=== PATIENT | female | born 1955 | race Caucasian/White ===

== ENCOUNTER → 2016-10-16 | Outpatient (REF) | payer OTHER ==
[2016-10-16 16:22] LABS: MEAN CORPUSCULAR HEMOGLOBIN 30.8 pg (27.0-33.0); MEAN CORPUSCULAR HGB CONC 32.6 g/dl (32.0-36.5); MEAN CORPUSCULAR VOLUME 94.6 fl (80.0-96.0); RED CELL DISTRIBUTION WIDTH 12.4 % (11.5-14.5); WHITE BLOOD COUNT 8.2 K/mm3 (4.0-10.0)
[2016-10-16 16:31] LABS: ALBUMIN 3.5 GM/DL (3.2-5.2); ALBUMIN/GLOBULIN RATIO 1.13 (1.00-1.93); ALKALINE PHOSPHATASE 71 U/L (45-117); ALT/SGPT 22 U/L (12-78); ANION GAP 8 MEQ/L (8-16); AST/SGOT 21 U/L (15-37); BILIRUBIN,TOTAL 0.3 MG/DL (0.2-1.0); BLOOD UREA NITROGEN 15 MG/DL (7-18); CALCIUM LEVEL 8.5 MG/DL (8.5-10.1); CARBON DIOXIDE LEVEL 26 MEQ/L (21-32); CHLORIDE LEVEL 105 MEQ/L (98-107); CREATININE FOR GFR 0.85 MG/DL (0.55-1.02); GLOMERULAR FILTRATION RATE > 60.0 (>51); GLUCOSE, FASTING 82 MG/DL (70-105); POTASSIUM SERUM 3.9 MEQ/L (3.5-5.1); SODIUM LEVEL 139 MEQ/L (136-145); TOTAL PROTEIN 6.6 GM/DL (6.4-8.2)
== END ==
LOC: M SFHCPLAZ 13:18
PROVIDERS: ATTEND Dermatology
DX: Z51.81 Encounter for therapeutic drug level monitoring (principal); Z79.899 Other long term (current) drug therapy

== ENCOUNTER → 2017-02-26 | Outpatient (CLI) | payer OTHER ==
[~2017-02-26] MED LIST: ISOVUE-370 76% 100ML VIAL (Q9967) As Ordered ONE
--- NOTE | 2017-02-26 18:05 | REP ---
CT ANGIOGRAM CHEST: 02/26/2017. Clinical history: Sudden onset dyspnea. Left-sided chest wall pain. No prior pertinent study. Technique: The patient received 75 mL of Isovue 370, scanning through the chest with our pulmonary embolism protocol. Coronal and sagittal thick slab MIP reformats were performed. Findings: The lungs are well inflated. Some dependent atelectatic changes mid and lower lung zones bilaterally. More focal atelectatic changes deep sulcus left lower lobe medial and lateral basal segments. I do not see pleural effusion, pleural plaques without or with calcification, parenchymal lung mass nor any definite acute infiltrate. No definite nodule. Some minor apical pleuroparenchymal scarring. Heart is not enlarged. There is no pericardial thickening or effusion. The aorta is without aneurysm or dissection. No pathologic sized mediastinal or hilar adenopathy. The main, right and left pulmonary arteries are without filling defects in the mediastinum. The lobar, segmental and visible subsegmental arteries are without filling defect or vessel cutoff. I see no pneumothorax or pneumomediastinum. No hilar adenopathy, axillary or supraclavicular mass. Bone windows show dextroconvex scoliosis with some degenerative changes throughout the mid thoracic spine without compression deformity or destructive lesion. Sternum and manubrium grossly intact. The medial clavicles are unremarkable. Visualized ribs are intact without fracture or focal lesion. In the upper abdomen, no focal lesion of liver or spleen. The left lobe is elongated and extends across the entire upper abdomen cradling the upper pole of the spleen as anatomic variation. Neither organ is seen in their entirety. Adrenal glands grossly intact. No hiatal hernia. Impression: 1. There is no CT evidence of pulmonary thromboembolism. No pneumothorax or pneumomediastinum. 2. Dependent atelectatic changes in the lower chest posteriorly. 3. No infiltrate, bronchiectasis, lung mass or nodule. 4. No aortic aneurysm or dissection, mediastinal or hilar adenopathy nor supraclavicular mass. 5. Dextrorotatory scoliosis without compression deformity, rib lesion or fracture, pneumothorax or pneumomediastinum. Signed by Franklin Ernst MD 02/27/2017 04:46 P
== END ==
LOC: M RAD 17:02
PROVIDERS: ATTEND Nurse Practitioner Adult Health
DX: R07.89 Other chest pain (principal)

== ENCOUNTER → 2017-09-05 | Outpatient (REF) | payer OTHER, BC ==
[2017-09-05 12:49] LABS: BASO % 0.5 % (0.0-1.0); EOS # 0.2 10^3/uL (0.0-0.50); EOS % 2.6 % (0.0-3.0); HEMATOCRIT 45.7 % (36.0-47.0); HEMOGLOBIN 14.8 g/dl (12.0-16.0); IMMATURE GRANULOCYTE % 0.2 % (0-3.0); LYMPH # 2.5 10^3/uL (1.5-4.5); LYMPH % 29.8 % (24.0-44.0); MEAN CORPUSCULAR HEMOGLOBIN 30.2 pg (27.0-33.0); MEAN CORPUSCULAR HGB CONC 32.4 g/dl (32.0-36.5); MEAN CORPUSCULAR VOLUME 93.3 fl (80.0-96.0); MONO # 0.7 10^3/uL (0.0-0.8); MONO % 7.9 % (0.0-5.0); NEUTROPHILS # 4.9 10^3/uL (1.8-7.7); PLATELET COUNT, AUTOMATED 264 10^3/uL (150-450); RED CELL DISTRIBUTION WIDTH 12.9 % (11.5-14.5); WHITE BLOOD COUNT 8.2 10^3/uL (4.0-10.0)
[2017-09-05 13:37] LABS: ALBUMIN 3.8 GM/DL (3.2-5.2); ALBUMIN/GLOBULIN RATIO 1.15 (1.00-1.93); ALKALINE PHOSPHATASE 82 U/L (45-117); ALT/SGPT 25 U/L (12-78); ANION GAP 7 MEQ/L (8-16); AST/SGOT 20 U/L (7-37); BILIRUBIN,TOTAL 0.4 MG/DL (0.2-1.0); BLOOD UREA NITROGEN 15 MG/DL (7-18); CALCIUM LEVEL 9.2 MG/DL (8.8-10.2); CARBON DIOXIDE LEVEL 30 MEQ/L (21-32); CHLORIDE LEVEL 104 MEQ/L (98-107); CHOLESTEROL LEVEL 184 MG/DL (<200); CHOLESTEROL RISK RATIO 2.453 (<5); CREATININE FOR GFR 0.93 MG/DL (0.55-1.30); GLOMERULAR FILTRATION RATE > 60.0 (>45); GLUCOSE, FASTING 84 MG/DL (70-100); HDL CHOLESTEROL 75 MG/DL (>40); LDL CHOLESTEROL 93.4 MG/DL (<100); NON-HDL-C 109 MG/DL; POTASSIUM SERUM 4.4 MEQ/L (3.5-5.1); SODIUM LEVEL 141 MEQ/L (136-145); TOTAL PROTEIN 7.1 GM/DL (6.4-8.2); TRIGLYCERIDES LEVEL 78 MG/DL (<150)
== END ==
LOC: M SFHCPLAZ 12:00
DX: Z51.81 Encounter for therapeutic drug level monitoring (principal); Z79.899 Other long term (current) drug therapy
CPT/HCPCS: 80053

== ENCOUNTER → 2018-05-19 | Outpatient (CLI) | payer BC | LOC: M WHC 11:28 | DX: Z12.31 Encounter for screening mammogram for malignant neoplasm of breast (principal); Z78.0 Asymptomatic menopausal state; Z92.23 Personal history of estrogen therapy; Z80.3 Family history of malignant neoplasm of breast; Z80.49 Family history of malignant neoplasm of other genital organs | CPT/HCPCS: 77067 ==

== ENCOUNTER → 2018-08-14 | Outpatient (CLI) | payer BC ==
--- NOTE | 2018-08-14 16:04 | REP ---
LUMBAR SPINE, SEVEN VIEWS: HISTORY: Back pain. There is no acute fracture or subluxation. The L3-4 through L5-S1 intervertebral discs are decreased in height consistent with disc degeneration. Osteophytes are present on L3 through 5. There is narrowing of the L3-4 through L5-S1 facet joints. There is scoliosis convex to the left. IMPRESSION: Degenerative change as described above. Electronically Signed by Carlos De León MD 08/14/2018 04:07 P
== END ==
LOC: M SMT 15:10
PROVIDERS: ATTEND Family Medicine
DX: M25.78 Osteophyte, vertebrae (principal); M51.36 Other intervertebral disc degeneration, lumbar region

== ENCOUNTER → 2018-08-15 | Outpatient (REF) | payer BC ==
[2018-08-15 13:46] LABS: BASO % 0.4 % (0.0-1.0); EOS # 0.2 10^3/uL (0.0-0.50); EOS % 2.4 % (0.0-3.0); HEMOGLOBIN 13.9 g/dl (12.0-15.5); LYMPH # 2.8 10^3/uL (1.5-4.5); LYMPH % 37.2 % (24.0-44.0); MEAN CORPUSCULAR HGB CONC 33.1 g/dl (32.0-36.5); MEAN CORPUSCULAR VOLUME 90.7 fl (80.0-96.0); MONO # 0.5 10^3/uL (0.0-0.8); MONO % 6.4 % (0.0-5.0); NEUTROPHILS % 53.3 % (36.0-66.0); PLATELET COUNT, AUTOMATED 197 10^3/uL (150-450); RED BLOOD COUNT 4.63 10^6/uL (4.00-5.40); WHITE BLOOD COUNT 7.5 10^3/uL (4.0-10.0)
[2018-08-15 15:02] LABS: IMMUNOGLOBULIN E 5.2 IU/ML (<100); IMMUNOGLOBULIN G 1090 MG/DL (681-1648); RUBELLA IgG QUALITATIVE IMMUNE (IMMUNE)
== END ==
LOC: M LABDRAWP 12:06
PROVIDERS: ATTEND Allergy & Immunology Allergy
DX: K21.9 Gastro-esophageal reflux disease without esophagitis (principal); D84.9 Immunodeficiency, unspecified; J30.1 Allergic rhinitis due to pollen; J30.81 Allergic rhinitis due to animal (cat) (dog) hair and dander

== ENCOUNTER → 2018-08-15 | Outpatient (REF) | payer BC ==
[2018-08-15 14:02] LABS: MAGNESIUM LEVEL 2.1 MG/DL (1.8-2.4)
[2018-08-20 00:07] LABS: HOMOCYST(E)INE SERUM 7.2 umol/L (0.0-15.0)
== END ==
LOC: M LABDRAWP 12:10
PROVIDERS: ATTEND Family Medicine
DX: K21.9 Gastro-esophageal reflux disease without esophagitis (principal); Z11.59 Encounter for screening for other viral diseases

== ENCOUNTER → 2018-11-12 | Outpatient (REF) | payer BC ==
[2018-11-18 08:06] LABS: STREP PNEUMO TYPE 1 >22.7 ug/mL (>1.3); STREP PNEUMO TYPE 12F 1.9 ug/mL (>1.3); STREP PNEUMO TYPE 14 0.8 ug/mL (>1.3); STREP PNEUMO TYPE 18C 7.2 ug/mL (>1.3); STREP PNEUMO TYPE 19A >11.6 ug/mL (>1.3); STREP PNEUMO TYPE 19F 1.3 ug/mL (>1.3); STREP PNEUMO TYPE 23F 0.2 ug/mL (>1.3); STREP PNEUMO TYPE 3 >9.6 ug/mL (>1.3); STREP PNEUMO TYPE 4 0.3 ug/mL (>1.3); STREP PNEUMO TYPE 6B 28.1 ug/mL (>1.3); STREP PNEUMO TYPE 7F >16.9 ug/mL (>1.3); STREP PNEUMO TYPE 8 20.1 ug/mL (>1.3); STREP PNEUMO TYPE 9N 1.8 ug/mL (>1.3); STREP PNEUMO TYPE 9V 2.2 ug/mL (>1.3)
== END ==
LOC: M LABDRAWP 15:38
PROVIDERS: ATTEND Allergy & Immunology Allergy
DX: D84.9 Immunodeficiency, unspecified (principal)

== ENCOUNTER → 2019-05-20 | Outpatient (REF) | payer BC ==
[2019-05-22 14:12] LABS: HPV HYBRID CAPTURE II Negative (Negative)
== END ==
LOC: M SFHCWAGY 12:40
PROVIDERS: ATTEND Nurse Practitioner Women's Health
DX: Z12.4 Encounter for screening for malignant neoplasm of cervix (principal)
CPT/HCPCS: 87624; G0123

== ENCOUNTER → 2019-05-20 | Outpatient (CLI) | payer BC ==
--- NOTE | 2019-05-20 13:08 | REPMRS ---
Patient History The patient states she had a clinical breast exam in 05/2019. Patient is postmenopausal. Family history of premenopausal breast cancer at age 50 or over in paternal grandmother, ovarian cancer at age 50 or over in maternal cousin, endometrial cancer at age 50 or over in maternal cousin, endometrial cancer at age 59 in sister. Took estrogen for 1 year 1 month. Took progesterone for 9 months. 3D TOMOSYNTHESIS WAS PERFORMED. The [facility] lifetime risk for breast cancer is 10.3%. Digital Woman Screen Mammo: May 20, 2019 - Exam #: [id number] Bilateral CC and MLO view(s) were taken. Technologist: Yuliana Santizo, Technologist Prior study comparison: May 19, 2018, bilateral digital woman screen mammo performed at [facility]. May 08, 2017, digital woman screen mammo performed at [facility]. FINDINGS: There are scattered fibroglandular densities. There has been no change in the appearance of the mammogram from the prior studies. There is a mild amount of residual fibroglandular tissue which is fairly symmetric. There is no interval development of dominant mass, architectural distortion, or clustered microcalcification suggestive of malignancy. Assessment: BI-RADS/ACR category 1 mammogram. Negative Mammogram. Recommendation Routine screening mammogram in 1 year (for women over age 40). This mammogram was interpreted with the aid of an FDA-approved computer-aided dectection system. Electronically Signed By: Catrachito David MD 05/20/19 [id number]
== END ==
LOC: M WHC 11:11
PROVIDERS: ATTEND Nurse Practitioner Women's Health
DX: Z12.31 Encounter for screening mammogram for malignant neoplasm of breast (principal); Z78.0 Asymptomatic menopausal state

== ENCOUNTER → 2019-08-11 | Outpatient (REF) | payer BC ==
[2019-08-11 10:00] LABS: BASO % 0.6 % (0.0-1.0); EOS # 0.1 10^3/uL (0.0-0.5); EOS % 1.7 % (0.0-3.0); HEMATOCRIT 47.2 % (36.0-47.0); HEMOGLOBIN 15.2 g/dl (12.0-15.5); LYMPH # 1.9 10^3/uL (1.5-5.0); LYMPH % 34.9 % (24.0-44.0); MEAN CORPUSCULAR HEMOGLOBIN 29.9 pg (27.0-33.0); MEAN CORPUSCULAR HGB CONC 32.2 g/dl (32.0-36.5); MEAN CORPUSCULAR VOLUME 92.7 fl (80.0-96.0); MONO # 0.6 10^3/uL (0.0-0.8); MONO % 10.9 % (0.0-5.0); NEUTROPHILS # 2.7 10^3/uL (1.5-8.5); NEUTROPHILS % 51.5 % (36.0-66.0); PLATELET COUNT, AUTOMATED 221 10^3/uL (150-450); RED BLOOD COUNT 5.09 10^6/uL (4.00-5.40); WHITE BLOOD COUNT 5.3 10^3/uL (4.0-10.0)
[2019-08-11 10:24] LABS: ALBUMIN 3.9 GM/DL (3.2-5.2); ALT/SGPT 25 U/L (12-78); BILIRUBIN,TOTAL 0.4 MG/DL (0.2-1.0); BLOOD UREA NITROGEN 14 MG/DL (7-18); C REACTIVE PROTEIN QUANTITATIV < 0.30 MG/DL (0.00-0.30); CALCIUM LEVEL 9.2 MG/DL (8.8-10.2); CARBON DIOXIDE LEVEL 31 MEQ/L (21-32); CHLORIDE LEVEL 105 MEQ/L (98-107); CHOLESTEROL LEVEL 180 MG/DL (<200); CHOLESTEROL RISK RATIO 2.686 (<5); CREATININE FOR GFR 0.82 MG/DL (0.55-1.30); GLOMERULAR FILTRATION RATE > 60.0 (>45); GLUCOSE, FASTING 95 MG/DL (70-100); HDL CHOLESTEROL 67 MG/DL (>40); LDL CHOLESTEROL 93 MG/DL (<100); NON-HDL-C 113 MG/DL; POTASSIUM SERUM 4.5 MEQ/L (3.5-5.1); RHEUMATOID FACTOR QUANT < 10.0 IU/ML (<15.0); SODIUM LEVEL 141 MEQ/L (136-145); TOTAL PROTEIN 7.2 GM/DL (6.4-8.2); TRIGLYCERIDES LEVEL 99 MG/DL (<150)
[2019-08-11 10:30] LABS: ERYTHROCYTE SEDIMENTATION RATE 2 mm/hr (0-30)
[2019-08-13 00:14] LABS: ANA (HEP2) Negative (.); CYCLIC CITRULLINATED PEPTIDE 8 units (0-19); Lyme Disease IgG/IgM Antibodie <0.91 ISR (0.00-0.90); Lyme Disease IgM Ab Quantitati <0.80 index (0.00-0.79)
== END ==
LOC: M SFHCPLAZ 07:24
PROVIDERS: ATTEND Physician Assistant Medical
DX: M65.9 Synovitis and tenosynovitis, unspecified (principal); E78.00 Pure hypercholesterolemia, unspecified

== ENCOUNTER → 2019-08-25 | Outpatient (POV) | payer BC ==
[~2019-08-25] VITALS: Ht 172.7 cm; Wt 65.9 kg
[2019-08-25 16:00] VITALS: BP 116/65
--- NOTE | 2019-08-27 13:31 | IRCOV ---
[facility] IR Consult Office Visit IR Consult Office Visit DATE: Aug 25, 2019 REASON FOR CONSULTATION/CHIEF COMPLAINT: Varicose veins. HISTORY OF PRESENT ILLNESS: 63-year-old female complaining of pain and swelling in bilateral legs for one year. She notices bulging varicose veins. She's been wearing compression stockings for years now. Skin feels itchy and scratchy. Swelling is minimal in the morning after elevation. Swelling is worse over the course of the day. No prior varicose vein treatments. No prior deep vein thrombosis. No pedal ulcers. ALLERGIES: Please see below. HOME MEDICATIONS: Please see below. PAST MEDICAL HISTORY: Alopecia raynauds Ocular migraines PAST SURGICAL HISTORY: No surgery in the legs FAMILY HISTORY: Mother suffered with varicose veins SOCIAL HISTORY: Nonsmoker. REVIEW OF SYSTEMS: Otherwise negative PHYSICAL EXAMINATION: VITAL SIGNS: Please see below. GENERAL APPEARANCE: Appears well. Comfortable at rest. HEENT: No scleral icterus. RESPIRATORY: Normal breathing at rest. CARDIOVASCULAR: Normal rate. ABDOMEN: Soft nontender. EXTREMITIES: Right lower extremity: Normal color, warm to touch. No significant swelling. No hemosiderin deposition or lipodermatosclerosis. Motor 5 out of 5. Spider veins visible. Bulging veins not appreciated. Left lower extremity:Normal color, warm to touch. No significant swelling. No hemosiderin deposition or lipodermatosclerosis. Motor 5 out of 5. Spider veins visible. Bulging veins not appreciated. NEUROLOGICAL: Alert and oriented. PSYCHIATRIC: Appropriate to circumstance. LABORATORY DATA: 08/11/2019 hemoglobin 15.2 hematocrit 47.2 WBC 5.3 platelets 221 sodium 141 potassium 4.5 BUN 14 creatinine 0.8 Imaging: No venous imaging of lower extremities performed. ASSESSMENT/PLAN: 64-year-old female with family history of varicose veins presents with bilateral leg aching, varicosities and swelling. I'll obtain bilateral lower extremity venous reflux studies to look for insufficient incompetent superficial veins. If these are present, these would be amenable to EVLT therapy. I'll follow up with the patient after the ultrasound. I spent 30 minutes in consultation with the patient. Thank you for this referral. CC Kassie Miguel Allergies Coded Allergies: MS - Sulfa Drugs (Unverified Allergy, Intermediate, RASH, 10/01/12) MS - Sulfa Drugs Cross Reactors (Unverified Allergy, Intermediate, RASH, 10/01/12) MS - Codeine (Unverified Allergy, Mild, RASH ITCHING, 10/01/12) VS, I&O, 24H, Fishbone Vital Signs/I&O Vital Signs Date Time Temp Pulse Resp B/P (MAP) Pulse Ox O2 Delivery O2 Flow Rate FiO2 08/25/19 16:00 97.9 62 18 116/65 (82) 99 Room Air ELOY GONZALEZ MD Aug 27, 2019 13:31
== END ==
LOC: M IRPOV 15:52
PROVIDERS: ATTEND Radiology Diagnostic Radiology
DX: I83.893 Varicose veins of bilateral lower extremities with other complications (principal); L63.9 Alopecia areata, unspecified; I73.00 Raynaud's syndrome without gangrene; G43.909 Migraine, unspecified, not intractable, without status migrainosus

== ENCOUNTER → 2019-09-03 | Outpatient (CLI) | payer BC ==
--- NOTE | 2019-09-03 19:41 | REP ---
BILATERAL LOWER EXTREMITY DUPLEX DOPPLER VENOUS ULTRASOUND WITH EVALUATION FOR VENOUS REFLUX: Real-time compression and duplex Doppler interrogation of the bilateral lower extremity deep venous systems is performed. Bilaterally, common femoral, superficial femoral and popliteal veins are fully compressible with transducer pressure and demonstrate normal spontaneous and phasic flow without evidence of deep venous thrombosis. Evaluation for venous reflux on the right demonstrates no evidence of reflux in any of the deep veins. There is no anterior accessory greater saphenous vein present. There is no reflux in the lesser saphenous vein which measures 2 mm. There is reflux throughout the greater saphenous vein. There is reflux at the saphenofemoral junction with a duration of 4.1 seconds, AP diameter 5 mm, at the mid thigh with a duration of 4.7 seconds and AP diameter 4 mm, as well as at the knee with a duration of 4.3 seconds, AP diameter 4 mm. On the left, there is some reflux in the common femoral as well as proximal to mid superficial femoral veins. There is no reflux in the distal superficial femoral or popliteal veins. There is no reflux in the lesser saphenous vein which measures 4 mm. There is an anterior accessory greater saphenous vein present without reflux. There is reflux throughout the greater saphenous vein. Reflux in the greater saphenous vein at the saphenofemoral junction has a duration of 2.3 seconds with AP diameter 7 mm, at the mid thigh duration is 4.6 seconds with AP diameter 6 mm and at the knee duration is 5.1 seconds with AP diameter 5 mm. Unreviewed
== END ==
LOC: M RAD 15:41
PROVIDERS: ATTEND Radiology Diagnostic Radiology
DX: I83.893 Varicose veins of bilateral lower extremities with other complications (principal)

== ENCOUNTER → 2019-11-03 | Outpatient (REF) | payer BC ==
[2019-11-03 14:49] LABS: APPEARANCE, URINE CLEAR (CLEAR); BACTERIA, URINE AUTO NEGATIVE (NEGATIVE); BILIRUBIN, URINE AUTO NEGATIVE (NEGATIVE); BLOOD, URINE BLOOD 3+ (NEGATIVE); COLOR, URINE YELLOW (YELLOW); GLUCOSE, URINE (UA) AUTO NEGATIVE (NEGATIVE); KETONE, URINE AUTO NEGATIVE (NEGATIVE); LEUKOCYTE ESTERASE, URINE AUTO 1+ (NEGATIVE); NITRITE, URINE AUTO NEGATIVE (NEGATIVE); PROTEIN, URINE AUTO NEGATIVE (NEGATIVE); RBC, URINE AUTO 2 /HPF (0-3); SPECIFIC GRAVITY URINE AUTO 1.003 (1.002-1.035); SQUAMOUS EPITHELIAL CELL UR AU 2 /HPF (0-6); UROBILINOGEN, URINE AUTO 0.2 mg/dL (0.0-2.0); WBC, URINE AUTO 18 /HPF (0-3)
== END ==
LOC: M SFHCPLAZ 13:06
PROVIDERS: ATTEND Physician Assistant Medical
DX: R30.0 Dysuria (principal)

== ENCOUNTER → 2019-11-30 | Outpatient (CLI) | payer BC ==
--- NOTE | 2019-12-01 04:31 | REP ---
Clinical: Postmenopausal bleeding. Technique: Transabdominal pelvic ultrasound followed by transvaginal examination for better evaluation of the endometrium and adnexa with color Doppler evaluation of the ovaries. Findings: Bladder is normal and measures 7.8 x 5.2 x 8.5 cm. Anteverted uterus measures 8.0 x 3.5 x 4.3 cm. Endometrial complex is thickened to 10 mm. There is a 1.9 x 1.2 x 1.0 cm complex area with in the cervix having irregular borders and internal echogenic material. Differential diagnosis would include complex Nabothian cyst, complex fluid/hemorrhagic debris, and less likely mass lesion. Right ovary measures 2.1 x 1.4 x 1.8 cm and includes 1.2 cm simple cyst. The left ovary is not visualized. No pelvic fluid or adnexal mass lesion. Impression: 1. Mildly thickened endometrial complex to 10 mm without discrete endometrial abnormality. 2. Complex area within the cervix as described above. Clinical/physical correlation is recommended. Consider reevaluation by ultrasound and 4-6 weeks and/or pelvic MRI if necessary.
== END ==
LOC: M WHC 15:20
PROVIDERS: ATTEND Nurse Practitioner Women's Health
DX: N83.201 Unspecified ovarian cyst, right side (principal); N95.0 Postmenopausal bleeding

== ENCOUNTER → 2019-12-02 | Outpatient (REF) | payer BC ==
[2019-12-02 13:22] LABS: ALBUMIN 3.8 GM/DL (3.2-5.2); BLOOD UREA NITROGEN 17 MG/DL (7-18); CARBON DIOXIDE LEVEL 29 MEQ/L (21-32); CHLORIDE LEVEL 105 MEQ/L (98-107); CREATININE FOR GFR 0.82 MG/DL (0.55-1.30); GLOMERULAR FILTRATION RATE > 60.0 (>45); GLUCOSE, FASTING 84 MG/DL (70-100); PHOSPHORUS LEVEL 3.9 MG/DL (2.5-4.9); POTASSIUM SERUM 4.3 MEQ/L (3.5-5.1); SODIUM LEVEL 140 MEQ/L (136-145)
== END ==
LOC: M SFHCPLAZ 12:22
PROVIDERS: ATTEND Physician Assistant Medical
DX: N95.0 Postmenopausal bleeding (principal)

== ENCOUNTER → 2019-12-03 | Outpatient (REF) | payer BC | LOC: M SFHCWAGY 17:41 | PROVIDERS: ATTEND Nurse Practitioner Women's Health | DX: N95.0 Postmenopausal bleeding (principal) ==

== ENCOUNTER → 2020-05-09 | Outpatient (CLI) | payer SELFPAY | LOC: M LABSMTC 12:30 | PROVIDERS: ATTEND Pediatrics | DX: Z11.59 Encounter for screening for other viral diseases (principal) ==

== ENCOUNTER → 2020-06-06 | Outpatient (CLI) | payer BC ==
--- NOTE | 2020-06-06 15:32 | REPMRS ---
Patient History The patient states she had a clinical breast exam in May 2020. Patient is postmenopausal and had first child at age 33. Family history of premenopausal breast cancer at age 50 or over in paternal grandmother, ovarian cancer at age 50 or over in maternal cousin, endometrial cancer at age 50 or over in maternal cousin, endometrial cancer at age 59 in sister. Took estrogen for 1 year 1 month. Took progesterone for 9 months. Digital Woman Screen Mammo: June 06, 2020 - Exam #: [id number] Bilateral CC and MLO view(s) were taken. Technologist: Colleen Garcia, Technologist Prior study comparison: May 20, 2019, bilateral digital woman screen [place] [facility] May 19, 2018, bilateral digital woman screen [place]o [place] [facility] May 08, 2017, digital woman screen [place]o [place] [facility] FINDINGS: There are scattered fibroglandular densities. The Volpara volumetric breast density category is:B. There has been no change in the appearance of the mammogram from the prior studies. There is a mild amount of scattered fibroglandular density which is fairly symmetric. There is no interval development of dominant mass, architectural distortion, or grouped microcalcification suggestive of malignancy. 3-D tomosynthesis shows no additional findings. Assessment: BI-RADS/ACR category 1 mammogram. Negative Mammogram. Recommendation Routine screening mammogram of both breasts in 1 year (for women over age 40). This patient's [facility] Lifetime Breast Cancer Risk is estimated at 15.3 %. This mammogram was interpreted with the aid of an FDA-approved computer-aided dectection system. Electronically Signed By: Sony Salgado MD 06/06/20 [id number]
== END ==
LOC: M WHC 14:12
PROVIDERS: ATTEND Nurse Practitioner Women's Health
DX: Z12.31 Encounter for screening mammogram for malignant neoplasm of breast (principal)

== ENCOUNTER → 2021-02-01 | Outpatient (REF) | payer BC | LOC: M LAB REF 17:59 | PROVIDERS: ATTEND Physician Assistant | DX: D04.5 Carcinoma in situ of skin of trunk (principal) ==

== ENCOUNTER → 2021-07-11 | Outpatient (REF) | payer BC | LOC: M SFHCWAGY 19:14 | PROVIDERS: ATTEND Nurse Practitioner Women's Health | DX: Z12.4 Encounter for screening for malignant neoplasm of cervix (principal); N95.2 Postmenopausal atrophic vaginitis | CPT/HCPCS: 87624; G0123 ==

== ENCOUNTER → 2021-07-11 | Outpatient (CLI) | payer BC | LOC: M WHC 11:18 | PROVIDERS: ATTEND Nurse Practitioner Women's Health | DX: Z12.31 Encounter for screening mammogram for malignant neoplasm of breast (principal) ==

== ENCOUNTER → 2021-08-14 | Outpatient (CLI) | payer BC ==
[~2021-08-14] MED LIST changes: +ALLE180T33 PO; +DOXY100C3 PO; +FAMO40TA3 PO; +HYDR200T3 PO; +INTR6.5S VG; -ISOVUE-370 76% 100ML VIAL (Q9967) As Ordered ONE; +LIDOCAINE 1% MDV 20ML VIAL As Ordered ONE; +LIDOCAINE 2% MDV 20ML VIAL As Ordered ONE; +MIDAZOLAM INJ 2MG/2ML VIAL (J2250 PER 1MG) As Ordered ONE; +NALT50TA4 PO; +NS 1,000 ML IV SCH; +PANT20TA6 PO; +THERTAB52 PO; +diphenhydrAMINE 50MG/ML VIAL (J1200) As Ordered ONE; +fentaNYL 100 MCG/2 ML INJECTION As Ordered ONE
[2021-08-14 10:55] VITALS: BP 130/75
== END ==
LOC: M IRPRO 07:48
PROVIDERS: ATTEND Radiology Diagnostic Radiology
DX: I83.813 Varicose veins of bilateral lower extremities with pain (principal)
CPT/HCPCS: 36465; 36478; 76940; 99152; 99153; J1200; J2250; J3010

== ENCOUNTER → 2021-08-15 | Outpatient (CLI) | payer BC ==
[~2021-08-15] MED LIST changes: -LIDOCAINE 1% MDV 20ML VIAL As Ordered ONE; -LIDOCAINE 2% MDV 20ML VIAL As Ordered ONE; -MIDAZOLAM INJ 2MG/2ML VIAL (J2250 PER 1MG) As Ordered ONE; -NS 1,000 ML IV SCH; -diphenhydrAMINE 50MG/ML VIAL (J1200) As Ordered ONE; -fentaNYL 100 MCG/2 ML INJECTION As Ordered ONE
== END ==
LOC: M SOG 08:27
PROVIDERS: ATTEND Orthopaedic Surgery Hand Surgery
DX: M79.641 Pain in right hand (principal)

== ENCOUNTER → 2021-08-21 | Outpatient (CLI) | payer BC | LOC: M RAD 07:33 | PROVIDERS: ATTEND Radiology Diagnostic Radiology | DX: I82.402 Acute embolism and thrombosis of unspecified deep veins of left lower extremity (principal) ==

== ENCOUNTER → 2021-09-26 | Outpatient (POV) | payer BC ==
[~2021-09-26] VITALS: Ht 172.7 cm; Wt 67.3 kg
[2021-09-26 08:15] VITALS: BP 145/75
== END ==
LOC: M IRPOV 08:08
PROVIDERS: ATTEND Radiology Diagnostic Radiology
DX: Z48.812 Encounter for surgical aftercare following surgery on the circulatory system (principal); Z88.2 Allergy status to sulfonamides; Z88.5 Allergy status to narcotic agent

== ENCOUNTER 2021-12-28 12:12 | Emergency (ER) | payer OTHER, BC ==
[~2021-12-28] VITALS: Ht 172.7 cm; Wt 66.4 kg
[2021-12-28 12:12] VITALS: BP 159/72
[2021-12-28 12:44] LABS: BASO % 0.6 % (0.0-1.0); EOS # 0.1 10^3/uL (0.0-0.5); EOS % 1.5 % (0.0-3.0); HEMATOCRIT 41.8 % (36.0-47.0); HEMOGLOBIN 13.8 g/dl (12.0-15.5); LYMPH # 2.2 10^3/uL (1.5-5.0); LYMPH % 30.8 % (24.0-44.0); MEAN CORPUSCULAR HEMOGLOBIN 30.3 pg (27.0-33.0); MEAN CORPUSCULAR VOLUME 91.9 fl (80.0-96.0); MONO # 0.5 10^3/uL (0.0-0.8); MONO % 6.3 % (2.0-8.0); NEUTROPHILS # 4.4 10^3/uL (1.5-8.5); NEUTROPHILS % 60.5 % (36.0-66.0); PLATELET COUNT, AUTOMATED 250 10^3/uL (150-450); RED BLOOD COUNT 4.55 10^6/uL (4.00-5.40); WHITE BLOOD COUNT 7.2 10^3/uL (4.0-10.0)
[2021-12-28 13:21] LABS: ALBUMIN 3.7 GM/DL (3.2-5.2); ALT/SGPT 21 U/L (12-78); BILIRUBIN,TOTAL 0.4 MG/DL (0.2-1.0); BLOOD UREA NITROGEN 18 MG/DL (7-18); CALCIUM LEVEL 9.7 MG/DL (8.8-10.2); CARBON DIOXIDE LEVEL 24 MEQ/L (21-32); CHLORIDE LEVEL 106 MEQ/L (98-107); CREATININE FOR GFR 0.87 MG/DL (0.55-1.30); GLOMERULAR FILTRATION RATE > 60.0 (>45); GLUCOSE, FASTING 109 MG/DL (70-100); POTASSIUM SERUM 3.7 MEQ/L (3.5-5.1); SODIUM LEVEL 140 MEQ/L (136-145); TOTAL PROTEIN 6.8 GM/DL (6.4-8.2)
[2021-12-28] MEDS ORDERED: BOOSTRIX/ADACEL VACCINE (DIPHTH/PERTUSS/ACELL/TETANUS) 0.5ML SYR IM ONE (13:30)
[2021-12-28 13:34] LABS: HEPATITIS B SURFACE ANTIBODY POSITIVE (POSITIVE)
[2021-12-28 13:45] LABS: HEPATITIS B SURFACE ANTIGEN NEGATIVE (NEGATIVE)
[2021-12-28 14:13] LABS: HEPATITIS C VIRUS ABY INDEX 0.1 INDEX (<0.8)
== END 2021-12-28 13:44 | disposition home or self-care (01) ==
LOC: M ED 12:12
DX: S61.032A Puncture wound without foreign body of left thumb without damage to nail, initial encounter (principal); W46.0XXA Contact with hypodermic needle, initial encounter; Y92.89 Other specified places as the place of occurrence of the external cause; Y99.0 Civilian activity done for income or pay; Z77.21 Contact with and (suspected) exposure to potentially hazardous body fluids

== ENCOUNTER → 2022-04-11 | Outpatient (CLI) | payer OTHER, BC | LOC: M ADAMS 11:33 | PROVIDERS: ATTEND Physician Assistant Medical | DX: M51.36 Other intervertebral disc degeneration, lumbar region (principal); M25.551 Pain in right hip; M41.9 Scoliosis, unspecified ==

== ENCOUNTER → 2022-07-16 | Outpatient (CLI) | payer BC | LOC: M WHC 10:51 | PROVIDERS: ATTEND Nurse Practitioner Family | DX: Z12.31 Encounter for screening mammogram for malignant neoplasm of breast (principal); R92.8 Other abnormal and inconclusive findings on diagnostic imaging of breast ==

== ENCOUNTER → 2022-07-16 | Outpatient (CLI) | payer BC | LOC: M WHC 11:45 | PROVIDERS: ATTEND Physician Assistant Medical | DX: M85.851 Other specified disorders of bone density and structure, right thigh (principal); M85.852 Other specified disorders of bone density and structure, left thigh ==

== ENCOUNTER → 2022-07-16 | Outpatient (REF) | payer BC | LOC: M PLALAB 11:52 | PROVIDERS: ATTEND Nurse Practitioner Family | DX: Z12.4 Encounter for screening for malignant neoplasm of cervix (principal); N88.8 Other specified noninflammatory disorders of cervix uteri | CPT/HCPCS: 87624; G0123 ==

== ENCOUNTER → 2022-07-18 | Outpatient (REF) | payer BC ==
[2022-07-18 12:40] LABS: BASO % 0.5 % (0.0-1.0); EOS # 0.1 10^3/uL (0.0-0.5); EOS % 2.1 % (0.0-3.0); HEMATOCRIT 43.9 % (36.0-47.0); HEMOGLOBIN 14.3 g/dl (12.0-15.5); LYMPH # 2.2 10^3/uL (1.5-5.0); LYMPH % 33.8 % (24.0-44.0); MEAN CORPUSCULAR HEMOGLOBIN 30.4 pg (27.0-33.0); MEAN CORPUSCULAR HGB CONC 32.6 g/dl (32.0-36.5); MEAN CORPUSCULAR VOLUME 93.4 fl (80.0-96.0); MONO # 0.5 10^3/uL (0.0-0.8); MONO % 6.9 % (2.0-8.0); NEUTROPHILS # 3.7 10^3/uL (1.5-8.5); NEUTROPHILS % 56.5 % (36.0-66.0); PLATELET COUNT, AUTOMATED 245 10^3/uL (150-450); WHITE BLOOD COUNT 6.5 10^3/uL (4.0-10.0)
[2022-07-18 12:47] LABS: ERYTHROCYTE SEDIMENTATION RATE 6 mm/hr (0-30)
[2022-07-18 13:16] LABS: C REACTIVE PROTEIN QUANTITATIV < 0.40 MG/DL (<1.0)
[2022-07-18 13:18] LABS: ALBUMIN 3.7 G/DL (3.2-5.2); ALKALINE PHOSPHATASE 67 U/L (46-116); ALT/SGPT 17 U/L (7.0-40); AST/SGOT 22 U/L (<34); BILIRUBIN,TOTAL 0.5 MG/DL (0.3-1.2); BLOOD UREA NITROGEN 15 MG/DL (9-23); CARBON DIOXIDE LEVEL 30 MMOL/L (20-31); CHLORIDE LEVEL 102 MMOL/L (98-107); CHOLESTEROL LEVEL 186 MG/DL (<200); CHOLESTEROL RISK RATIO 2.61 (<5); CREATININE FOR GFR 0.78 MG/DL (0.55-1.30); GLOMERULAR FILTRATION RATE > 60.0 (>45); GLUCOSE, FASTING 96 MG/DL (74-106); HDL CHOLESTEROL 71.2 MG/DL (>40); LDL CHOLESTEROL 99.2 MG/DL (<100); NON-HDL-C 115 MG/DL; POTASSIUM SERUM 4.2 MMOL/L (3.5-5.1); SODIUM LEVEL 138 MMOL/L (136-145); TOTAL PROTEIN 6.7 G/DL (5.7-8.2); TRIGLYCERIDES LEVEL 78 MG/DL (<150)
[2022-07-20 21:08] LABS: ANA (HEP2) Negative (.)
== END ==
LOC: M SFHCPLAZ 07:24
PROVIDERS: ATTEND Physician Assistant Medical
DX: E78.00 Pure hypercholesterolemia, unspecified (principal); M65.9 Synovitis and tenosynovitis, unspecified; K21.9 Gastro-esophageal reflux disease without esophagitis

== ENCOUNTER → 2022-07-23 | Outpatient (CLI) | payer BC | LOC: M WHC 12:58 | PROVIDERS: ATTEND Nurse Practitioner Family | DX: R92.8 Other abnormal and inconclusive findings on diagnostic imaging of breast (principal) | CPT/HCPCS: 77065; G0279 ==

== ENCOUNTER → 2022-10-04 | Outpatient (REF) | payer MEDICARE, BC ==
[2022-10-04 13:44] LABS: BASO % 0.4 % (0.0-1.0); EOS # 0.3 10^3/uL (0.0-0.5); EOS % 3.3 % (0.0-3.0); HEMOGLOBIN 13.5 g/dl (12.0-15.5); LYMPH # 2.4 10^3/uL (1.5-5.0); LYMPH % 24.7 % (24.0-44.0); MEAN CORPUSCULAR HEMOGLOBIN 30.5 pg (27.0-33.0); MEAN CORPUSCULAR HGB CONC 32.9 g/dl (32.0-36.5); MEAN CORPUSCULAR VOLUME 92.6 fl (80.0-96.0); MONO # 0.8 10^3/uL (0.0-0.8); MONO % 8.6 % (2.0-8.0); NEUTROPHILS # 6.1 10^3/uL (1.5-8.5); NEUTROPHILS % 62.5 % (36.0-66.0); PLATELET COUNT, AUTOMATED 252 10^3/uL (150-450); RED BLOOD COUNT 4.43 10^6/uL (4.00-5.40); WHITE BLOOD COUNT 9.8 10^3/uL (4.0-10.0)
[2022-10-04 14:08] LABS: THYROID STIMULATING HORMONE 0.797 uIU/ML (0.55-4.78)
[2022-10-04 14:09] LABS: ALBUMIN 3.6 G/DL (3.2-5.2); ALKALINE PHOSPHATASE 68 U/L (46-116); ALT/SGPT 21 U/L (7.0-40); AST/SGOT 16 U/L (<34); BILIRUBIN,TOTAL 0.3 MG/DL (0.3-1.2); BLOOD UREA NITROGEN 16 MG/DL (9-23); CALCIUM LEVEL 8.8 MG/DL (8.3-10.6); CARBON DIOXIDE LEVEL 30 MMOL/L (20-31); CHLORIDE LEVEL 103 MMOL/L (98-107); CREATININE FOR GFR 0.72 MG/DL (0.55-1.30); GLOMERULAR FILTRATION RATE > 60.0 (>45); GLUCOSE, FASTING 92 MG/DL (74-106); SODIUM LEVEL 141 MMOL/L (136-145); TOTAL PROTEIN 6.5 G/DL (5.7-8.2)
[2022-10-04 14:11] LABS: FREE T4 1.16 NG/DL (0.89-1.76)
== END ==
LOC: M SFHCPLAZ 10:52
PROVIDERS: ATTEND Physician Assistant
DX: E55.9 Vitamin D deficiency, unspecified (principal); E07.89 Other specified disorders of thyroid

== ENCOUNTER → 2023-08-09 | Outpatient (CLI) | payer MEDICARE, BC ==
[~2023-08-09] MED LIST changes: -HYDR200T3 PO; +HYDR200T46 PO
[2023-08-09 07:29] LABS: BASO % 0.7 % (0.0-1.0); EOS # 0.3 10^3/uL (0.0-0.5); EOS % 4.6 % (0.0-3.0); HEMATOCRIT 44.5 % (36.0-47.0); HEMOGLOBIN 14.9 g/dl (12.0-15.5); LYMPH # 1.9 10^3/uL (1.5-5.0); LYMPH % 30.6 % (24.0-44.0); MEAN CORPUSCULAR HEMOGLOBIN 30.7 pg (27.0-33.0); MEAN CORPUSCULAR HGB CONC 33.5 g/dl (32.0-36.5); MEAN CORPUSCULAR VOLUME 91.8 fl (80.0-96.0); MONO # 0.6 10^3/uL (0.0-0.8); NEUTROPHILS # 3.4 10^3/uL (1.5-8.5); NEUTROPHILS % 54.9 % (36.0-66.0); PLATELET COUNT, AUTOMATED 254 10^3/uL (150-450); RED BLOOD COUNT 4.85 10^6/uL (4.00-5.40); WHITE BLOOD COUNT 6.1 10^3/uL (4.0-10.0)
[2023-08-09 08:02] LABS: ALBUMIN 3.4 G/DL (3.2-5.2); ALKALINE PHOSPHATASE 67 U/L (46-116); ALT/SGPT 16 U/L (7.0-40); AST/SGOT 15 U/L (<34); BILIRUBIN,TOTAL 0.4 MG/DL (0.3-1.2); BLOOD UREA NITROGEN 15 MG/DL (9-23); CALCIUM LEVEL 9.5 MG/DL (8.3-10.6); CARBON DIOXIDE LEVEL 29 MMOL/L (20-31); CHLORIDE LEVEL 104 MMOL/L (98-107); CHOLESTEROL LEVEL 185 MG/DL (<200); CHOLESTEROL RISK RATIO 2.96 (<5); CREATININE FOR GFR 0.85 MG/DL (0.55-1.30); GLOMERULAR FILTRATION RATE > 60.0 (>45); GLUCOSE, FASTING 92 MG/DL (74-106); HDL CHOLESTEROL 62.4 MG/DL (>40); LDL CHOLESTEROL 108.6 MG/DL (<100); NON-HDL-C 122.6 MG/DL; POTASSIUM SERUM 4.4 MMOL/L (3.5-5.1); SODIUM LEVEL 140 MMOL/L (136-145); TOTAL 25(OH) VITAMIN D 45.3 NG/ML (20.0-100.0); TOTAL PROTEIN 6.5 G/DL (5.7-8.2); TRIGLYCERIDES LEVEL 70 MG/DL (<150); VITAMIN B12 LEVEL 945 PG/ML (211-911)
[2023-08-09 08:03] LABS: FREE T4 1.17 NG/DL (0.89-1.76); THYROID STIMULATING HORMONE 1.104 uIU/ML (0.55-4.78)
== END ==
LOC: M LAB 06:40
PROVIDERS: ATTEND Physician Assistant Medical
DX: Z00.00 Encounter for general adult medical examination without abnormal findings (principal); Z79.899 Other long term (current) drug therapy

== ENCOUNTER → 2023-09-23 | Outpatient (CLI) | payer MEDICARE, BC | LOC: M WHC 15:28 | PROVIDERS: ATTEND Nurse Practitioner Family | DX: Z12.31 Encounter for screening mammogram for malignant neoplasm of breast (principal) ==

== ENCOUNTER → 2024-05-06 | Outpatient (REF) | LOC: M EMP 14:55 | PROVIDERS: ATTEND Family Medicine | DX: Z11.52 Encounter for screening for COVID-19 (principal) ==

== ENCOUNTER → 2024-08-06 | Outpatient (REF) | payer MEDICARE, BC ==
[2024-08-06 15:16] LABS: BASO % 0.6 % (0.0-1.0); EOS # 0.2 10^3/uL (0.0-0.5); EOS % 2.4 % (0.0-3.0); HEMATOCRIT 44.1 % (36.0-47.0); HEMOGLOBIN 14.6 g/dl (12.0-15.5); LYMPH % 31.4 % (24.0-44.0); MEAN CORPUSCULAR HEMOGLOBIN 30.7 pg (27.0-33.0); MEAN CORPUSCULAR HGB CONC 33.1 g/dl (32.0-36.5); MEAN CORPUSCULAR VOLUME 92.8 fl (80.0-96.0); MONO # 0.5 10^3/uL (0.0-0.8); MONO % 7.6 % (2.0-8.0); NEUTROPHILS # 3.6 10^3/uL (1.5-8.5); NEUTROPHILS % 57.5 % (36.0-66.0); PLATELET COUNT, AUTOMATED 244 10^3/uL (150-450); RED BLOOD COUNT 4.75 10^6/uL (4.00-5.40); WHITE BLOOD COUNT 6.3 10^3/uL (4.0-10.0)
[2024-08-06 15:38] LABS: ALBUMIN 3.6 G/DL (3.2-5.2); ALKALINE PHOSPHATASE 58 U/L (35-104); ALT/SGPT 16 U/L (7.0-40); AST/SGOT 15 U/L (<34); BILIRUBIN,TOTAL 0.5 MG/DL (0.3-1.2); BLOOD UREA NITROGEN 21 MG/DL (9-23); CALCIUM LEVEL 9.4 MG/DL (8.3-10.6); CARBON DIOXIDE LEVEL 30 MMOL/L (20-31); CHLORIDE LEVEL 104 MMOL/L (98-107); CHOLESTEROL LEVEL 187 MG/DL (<200); CHOLESTEROL RISK RATIO 3.02 (<5); CREATININE FOR GFR 0.89 MG/DL (0.55-1.30); GLOMERULAR FILTRATION RATE > 60.0 (>45); GLUCOSE, FASTING 89 MG/DL (74-106); HDL CHOLESTEROL 61.9 MG/DL (>40); LDL CHOLESTEROL 104.9 MG/DL (<100); NON-HDL-C 125.1 MG/DL; POTASSIUM SERUM 4.8 MMOL/L (3.5-5.1); SODIUM LEVEL 141 MMOL/L (136-145); TOTAL PROTEIN 6.7 G/DL (5.7-8.2); TRIGLYCERIDES LEVEL 101 MG/DL (<150)
[2024-08-06 15:39] LABS: FREE T4 1.45 NG/DL (0.89-1.76)
[2024-08-06 15:40] LABS: THYROID STIMULATING HORMONE 1.331 uIU/ML (0.55-4.78)
== END ==
LOC: M LABDRWAD 12:46
PROVIDERS: ATTEND Physician Assistant Medical
DX: R53.83 Other fatigue (principal); Z13.220 Encounter for screening for lipoid disorders; K21.9 Gastro-esophageal reflux disease without esophagitis; R53.82 Chronic fatigue, unspecified

== ENCOUNTER → 2024-10-09 | Outpatient (REF) ==
[2024-10-11 12:31] LABS: SOFIA COVID ANTIGEN NEGATIVE (NEGATIVE)
== END ==
LOC: M EMP 10:38
PROVIDERS: ATTEND Family Medicine
DX: Z01.89 Encounter for other specified special examinations (principal)

== ENCOUNTER → 2024-11-16 | Outpatient (REF) | payer MEDICARE, BC | LOC: M SFHCWAGY 15:01 | PROVIDERS: ATTEND Specialist | DX: Z01.419 Encounter for gynecological examination (general) (routine) without abnormal findings (principal) ==